=== PATIENT | male | born 1970 | race Caucasian/White ===

== ENCOUNTER 2019-04-07 20:14 | Inpatient (IN) | payer MEDICAID ==
[~2019-04-07] VITALS: Ht 175.3 cm; Wt 80.3 kg
[2019-04-07] MEDS ORDERED: SODIUM CHLORIDE 0.9% 1,000 ML IV ONE (21:23)
[2019-04-07 21:50] LABS: BASOPHILS % 0.6 % (0.0-2.0); EOSINOPHILS % 0.7 % (0.0-5.0); HEMATOCRIT. 40.6 % (42.0-52.0); HEMOGLOBIN. 13.9 g/dL (14.0-18.0); LYMPHOCYTES % 15.4 % (20.0-50.0); MEAN CORPUSCULAR HEMOGLOBIN 30.6 pg (28.0-32.0); MEAN CORPUSCULAR VOLUME 89.4 fL (80.0-94.0); MEAN PLATELET VOLUME 8.8 fl (7.4-10.4); MONOCYTES % 7.9 % (2.0-8.0); NEUTROPHILS % 75.4 % (40.0-76.0); PLATELET 214 x1000/uL (130-400); RED BLOOD CELL COUNT 4.54 mill/uL (4.7-6.1); RED CELL DISTRIBUTION WIDTH 14.7 % (11.6-14.6)
[2019-04-07 21:55] LABS: CHLORIDE 105 mEq/L (98-107)
[2019-04-07 21:58] LABS: ETHANOL BLOOD < 10 mg/dL
[2019-04-07 23:05] LABS: CLARITY URINE CLEAR (CLEAR); COLOR URINE YELLOW (YELLOW); KETONES URINE NEGATIVE (NEGATIVE); LEUKOCYTE ESTERASE URINE NEGATIVE (NEGATIVE); NITRITE URINE NEGATIVE (NEGATIVE); OCCULT BLOOD URINE NEGATIVE (NEGATIVE); PH URINE 6.5 (4.5-8.0); PROTEIN URINE NEGATIVE (NEGATIVE); SPECIFIC GRAVITY URINE 1.003 (1.005-1.030); UROBILINOGEN URINE 0.2 E.U./dL (0.2-1.0)
[2019-04-07 23:15] LABS: *AMPHETAMINES SCREEN URINE NEGATIVE (NEGATIVE); *BARBITURATES SCREEN URINE NEGATIVE (NEGATIVE); *BENZODIAZEPINES SCREEN URINE PRESUMTIVE POSITIVE (NEGATIVE)
[2019-04-07] MEDS ORDERED: POTASSIUM CHLORIDE 20MEQ TABLET SR PO ONE (23:15)
[2019-04-07 23:16] LABS: *COCAINE SCREEN URINE NEGATIVE (NEGATIVE); CANNABINOID URINE SCREEN PRESUMTIVE POSITIVE (NEGATIVE); METHADONE URINE SCREEN NEGATIVE (NEGATIVE); OPIATES URINE SCREEN NEGATIVE (NEGATIVE); PHENCYCLIDINE URINE SCREEN NEGATIVE (NEGATIVE)
[2019-04-08] MEDS ORDERED: SODIUM CHLORIDE 0.9% 1,000 ML IV ONE (00:15)
[2019-04-08 08:15] VITALS: BP 107/71
[2019-04-08] MEDS ORDERED: ONDANSETRON HCL 4MG/2ML INJ IV PRN (09:00)
[2019-04-08] MEDS ORDERED: ACETAMINOPHEN 325MG TABLET PO PRN (09:00)
[2019-04-08] MEDS: LEVETIRACETAM 500MG TABLET PO SCH ×2 (09:52→20:24)
[2019-04-08] MEDS: SODIUM CHLORIDE 0.9% 1,000 ML IV SCH ×2 (09:53→18:02)
[2019-04-08 10:58] LABS: HEMOGLOBIN. 14.4 g/dL (14.0-18.0); LYMPHOCYTES % 25.4 % (20.0-50.0); MEAN CORPUSCULAR HEMOGLOBIN 30.4 pg (28.0-32.0); MEAN CORPUSCULAR VOLUME 90.9 fL (80.0-94.0); MEAN PLATELET VOLUME 9.5 fl (7.4-10.4); MONOCYTES % 8.1 % (2.0-8.0); NEUTROPHILS % 64.5 % (40.0-76.0); PLATELET 220 x1000/uL (130-400); RED BLOOD CELL COUNT 4.73 mill/uL (4.7-6.1); RED CELL DISTRIBUTION WIDTH 14.6 % (11.6-14.6)
[2019-04-08 12:00] VITALS: BP 111/68
[2019-04-08] MEDS ORDERED: DEUT12TA PO (13:55)
[2019-04-08] MEDS ORDERED: SIMV20TA6 MT (13:55)
[2019-04-08] MEDS ORDERED: MIRT-91 MT (13:55)
[2019-04-08] MEDS ORDERED: ZIPR80CA9 MT (13:55)
[2019-04-08] MEDS ORDERED: BENZ1TAB7 MT (13:55)
[2019-04-08] MEDS ORDERED: FLUO20TA29 MT (13:55)
[2019-04-08] MEDS ORDERED: LEVO75TA7 MT (13:55)
[2019-04-08] MEDS: LEVOTHYROXINE SODIUM 50MCG TABLET PO SCH (14:19)
[2019-04-08] MEDS: NICOTINE 21MG PATCH TD SCH (14:20)
[2019-04-08 15:49] VITALS: BP 131/78
[2019-04-08 16:00] VITALS: BP 112/69
[2019-04-08] MEDS ORDERED: FLUO20CA33 MT (19:26)
[2019-04-08] MEDS ORDERED: FLUO-123 PO (19:36)
[2019-04-08 20:00] VITALS: BP 109/72
[2019-04-08] MEDS: BENZTROPINE MESYLATE 1MG TABLET PO SCH (20:24)
[2019-04-08] MEDS: MIRTAZAPINE 30MG TABLET PO SCH (20:24)
[2019-04-08] MEDS ORDERED: ATORVASTATIN CALCIUM 10MG TABLET PO SCH (21:00)
[2019-04-09] VITALS: BP 109/75
[2019-04-09] MEDS: ZIPRASIDONE HCL 80MG CAPSULE PO SCH ×3 (00:49→19:32)
[2019-04-09 04:00] VITALS: BP 118/69
[2019-04-09] MEDS: SODIUM CHLORIDE 0.9% 1,000 ML IV SCH ×2 (06:25→14:47)
[2019-04-09] MEDS: LEVOTHYROXINE SODIUM 50MCG TABLET PO SCH (06:28)
[2019-04-09 06:59] LABS: BASOPHILS % 0.9 % (0.0-2.0); EOSINOPHILS % 1.7 % (0.0-5.0); HEMATOCRIT. 42.8 % (42.0-52.0); HEMOGLOBIN. 14.4 g/dL (14.0-18.0); LYMPHOCYTES % 35.8 % (20.0-50.0); MEAN CORPUSCULAR HEMOGLOBIN 30.7 pg (28.0-32.0); MEAN CORPUSCULAR VOLUME 90.9 fL (80.0-94.0); MEAN PLATELET VOLUME 9.3 fl (7.4-10.4); MONOCYTES % 9.2 % (2.0-8.0); NEUTROPHILS % 52.4 % (40.0-76.0); PLATELET 200 x1000/uL (130-400); RED BLOOD CELL COUNT 4.71 mill/uL (4.7-6.1); RED CELL DISTRIBUTION WIDTH 14.6 % (11.6-14.6)
[2019-04-09 07:21] LABS: CHLORIDE 110 mEq/L (98-107)
[2019-04-09 08:00] VITALS: BP 123/57
[2019-04-09] MEDS: BENZTROPINE MESYLATE 1MG TABLET PO SCH (08:35)
[2019-04-09] MEDS: LEVETIRACETAM 500MG TABLET PO SCH ×2 (08:36→21:05)
[2019-04-09] MEDS: NICOTINE 21MG PATCH TD SCH (08:37)
[2019-04-09] MEDS ORDERED: FLUOXETINE HCL 10 MG CAPSULE PO SCH (09:00)
[2019-04-09 12:00] VITALS: BP 157/60
[2019-04-09 16:00] VITALS: BP 142/77
[2019-04-09 20:31] VITALS: BP 123/76
[2019-04-09] MEDS: MIRTAZAPINE 30MG TABLET PO SCH (21:00)
== END 2019-04-09 21:30 | disposition home or self-care (01) | DRG 48 ==
LOC: ER 20:14 → 8WST 04-08 00:16 → ENRESERV 04-08 07:10
PROVIDERS: ADMIT Internal Medicine; ATTEND Internal Medicine
PROC: 4A00X4Z Measurement of Central Nervous Electrical Activity, External Approach (ICD-10-PCS; principal; 2019-04-09)
DX: G90.8 Other disorders of autonomic nervous system (principal); F25.9 Schizoaffective disorder, unspecified; G40.909 Epilepsy, unspecified, not intractable, without status epilepticus; E86.0 Dehydration; E03.9 Hypothyroidism, unspecified; F12.90 Cannabis use, unspecified, uncomplicated; E87.6 Hypokalemia; F17.210 Nicotine dependence, cigarettes, uncomplicated; F31.9 Bipolar disorder, unspecified; Z88.0 Allergy status to penicillin; Z71.6 Tobacco abuse counseling
CPT/HCPCS: 36415; 71045; 80048; 80061; 80305; 80320; 80329; 81003; 82140; 82962; 83605; 84145; 84439; 84443; 84484; 93005; 93306; 93970; 96360; 96361; 99285; J7030; G0480